=== PATIENT | male | born 1960 | race Caucasian/White ===

== ENCOUNTER 2019-05-12 04:59 | Emergency (ER) | payer OTHER ==
--- NOTE | 2019-05-12 05:04 | ER Report ---
History and Physical Time Seen By MD: 04:56 HPI/ROS CHIEF COMPLAINT: Right shoulder pain HISTORY OF PRESENT ILLNESS: 58-year-old male presents ambulatory to the ER complaining severe right shoulder pain. He appears grossly intoxicated state he fell down. His arm appears to be dislocated shifted anterior and inferior. Arm is slightly angulated out. Patient states his right hand is normal feeling. REVIEW OF SYSTEMS: Respiratory: No cough, no dyspnea. Cardiovascular: No chest pain, no palpitations. Gastrointestinal: No vomiting, no abdominal pain. Musculoskeletal: As above Allergies: Coded Allergies: No Known Drug Allergies (Unverified , 05/12/19) Home Meds Active Scripts Hydrocodone Bit/Acetaminophen (HYDROCODON-ACETAMINOPHEN 5-325) 1 Each Tablet, 1 EACH PO Q4-6H PRN for PAIN, #15 TAKE ONE TABLET BY MOUTH EVERY 4-6 HOURS NEEDED FOR PAIN Prov:DAHIANA LA DO 05/12/19 Reported Medications Amlodipine Besylate (AMLODIPINE BESYLATE) 5 Mg Tablet, 1 TAB PO QDAY, TAB 05/12/19 Atenolol (ATENOLOL) 50 Mg Tablet, 1 TAB PO QDAY, TAB 05/12/19 Reviewed Nurses Notes: Yes Old Medical Records Reviewed: Yes Constitutional Vital Sign - Last 24 Hours 05/12/19 05/12/19 05/12/19 05/12/19 04:59 05:00 05:00 05:04 Temp 97.7 Pulse ??? 81 90 Resp 17 B/P (MAP) 161/101 (121) 161/101 Pulse Ox 98 90 O2 Delivery Room Air 05/12/19 05/12/19 05/12/19 05/12/19 05:09 05:14 05:15 05:19 Pulse ??? 89 113 Resp 15 31 B/P (MAP) 152/85 (107) 180/112 (134) Pulse Ox 94 99 05/12/19 05/12/19 05/12/19 05/12/19 05:24 05:25 05:29 05:30 Pulse 100 95 B/P (MAP) 169/101 (123) 152/98 (116) Pulse Ox 95 97 05/12/19 05/12/19 05/12/19 05/12/19 05:34 05:39 05:44 05:45 Pulse 92 88 88 B/P (MAP) 152/84 (106) Pulse Ox 89 87 85 05/12/19 05/12/19 05/12/19 05:49 05:54 06:00 Pulse 92 89 B/P (MAP) 161/97 (118) Pulse Ox 86 92 Intake and Output 05/11/19 05/11/19 05/12/19 15:04 23:04 07:04 Intake Total 1000 ml Balance 1000 ml Physical Exam General Appearance: The patient is alert, has no immediate need for airway protection and no current signs of toxicity. Vital signs stable, afebrile Eyes: Pupils equal and round no injection. Respiratory: Chest is non tender, lungs are clear to auscultation. Cardiac: regular rate and rhythm Gastrointestinal: Abdomen is soft and non tender, no masses, bowel sounds normal. Musculoskeletal: Neck: Neck is supple and non tender. Extremities have full range of motion and are non tender. Examination of the r ight shoulder appears to be anteriorly and inferiorly dislocated., The right upper extremity is neurovascularly intact. Wrist and elbow are unremarkable. Skin: No rashes or lesions. DIFFERENTIAL DIAGNOSIS: After history and physical exam differential diagnosis was considered for sprain, strain, fracture, dislocation, contusion, alcohol intoxication Medical Decision Making ED Course/Re-evaluation Clinical Indication for ER IV: IV Access ED Course Patient was admitted to an examination room. An H&P was done. The differential diagnoses was considered. On clinical examination. Patient has a dislocated shoulder with fracture. Patient is given informed consent for conscious sedation. Patient's neurovascular function was noted to be intact post procedure. He was placed in a shoulder immobilizer. Procedure: Procedural sedation. A pre-sedation evaluation was completed on the patient at 0 516. Patient is an appropriate candidate for procedural sedation. The risks of the sedation were discussed with the and his significant other. 0 521 The patient was reevaluated immediately prior to initiation of sedation. The patient was sedated with etomidate 20 mg IV. The patient was monitored with continuous pulse oximetry and manager monitoring. There were no complications and no significant hypoxemia. I remained at the bedside for the sedation. The total time I spent in the procedural sedation was 20 minutes. Post sedation evaluation: Patient was oswald rt and cooperative, hemodynamically stable with appropriate respiratory status, temperature and pain control without ongoing nausea and vomiting. Procedure: Dislocation reduction. The shoulder was reduced in the usual fashion without complications. Post reduction the patient's neurovascular exam is normal. Post reduction x-ray demonstrates reduction of the joint to the anatomic position. The procedure was performed by myself. Decision to Disposition Date: May 12, 2019 Decision to Disposition Time: 05:03 Depart Departure Latest Vital Signs Vital Signs Date Time Temp Pulse Resp B/P (MAP) Pulse Ox O2 Delivery O2 Flow Rate FiO2 05/12/19 06:00 161/97 (118) 05/12/19 05:54 89 92 05/12/19 05:19 31 05/12/19 05:00 97.7 Room Air Impression: Primary Impression: Dislocation of right shoulder joint Additional Impression: Alcohol intoxication Condition: Improved Disposition: HOME OR SELF-CARE New Scripts Hydrocodone Bit/Acetaminophen (HYDROCODON-ACETAMINOPHEN 5-325) 1 Each Tablet 1 EACH PO Q4-6H PRN for PAIN, #15 TAKE ONE TABLET BY MOUTH EVERY 4-6 HOURS NEEDED FOR PAIN Prov: DAHIANA LA DO 05/12/19 Patient Instructions: Proximal Humerus Fracture (ED), Shoulder Dislocation (ED) Additional Instructions: Follow-up with orthopedics in your area within one week Problem Qualifiers Primary Impression: Dislocation of right shoulder joint Encounter type: initial encounter Qualified Codes: S43.004A - Unspecified dislocation of right shoulder joint, initial encounter Additional Impression: Alcohol intoxication Complication of substance-induced condition: uncomplicated Qualified Codes: F10.920 - Alcohol use, unspecified with intoxication, uncomplicated DAHIANA LA DO May 12, 2019 05:04
[2019-05-12] MEDS ORDERED: NS(*) 0.9% 1000 ML BAG 1,000 ML IV ONE (05:15)
[2019-05-12] MEDS ORDERED: ETOMIDATE 20 MG/10 ML VIAL IVP ONE (05:15)
--- NOTE | 2019-05-12 05:28 | RADIOLOGY IMAGING REPORT ---
FAC[place] [facility] [place]IENT NAME: Barry Leon : 1960 MR: [id number] V: [id number] EXAM DATE: ORDERING PHYSICIAN: DAHIANA LA TECHNOLOGIST: Location: [facility] - [place] Patient: Barry Leon : 1960 Visit/Account:[id number] Date of Sevice: 05/12/2019 RIGHT SHOULDER: Indication: Suspected dislocation. Technique: A single AP image was submitted. Comparison: None available. Findings: There is anterior subcoracoid dislocation of the humeral head. Furthermore, there is eviden ce of a displaced fracture arising from the lateral margin of the humeral head. The scapula appears i ntact, as visualized. The acromioclavicular joint is unremarkable. The visualized skeletal structures are otherwise unremarkable. There is normal mineralization. IMPRESSION: Anterior dislocation of the humerus, with an acute fracture arising from the lateral aspe ct of the humeral head. Report Dictated By: Richard Crowley MD at 05/12/2019 5:17 AM Report E-Signed By: Richard Crowley MD at 05/12/2019 5:20 AM WSN:[id number]
[2019-05-12] MEDS ORDERED: LOR5/325 PO (05:32)
[2019-05-12] MEDS ORDERED: KETOROLAC 30 MG/ML VIAL IVP ONE (05:35)
[2019-05-12] MEDS ORDERED: ACET/HYDROC 5/325MG TH ER ONLY 2 TAB/BOTTLE PO ONE (05:35)
[2019-05-12] MEDS ORDERED: ATEN-1 PO (05:40)
[2019-05-12] MEDS ORDERED: AMLO-125 PO (05:40)
--- NOTE | 2019-05-12 05:50 | RADIOLOGY IMAGING REPORT ---
FACILITY: [facility] - [place] PATIENT NAME: Barry Leon : 1960 MR: [id number] V: [id number] EXAM DATE: ORDERING PHYSICIAN: DAHIANA LA TECHNOLOGIST: Location: [facility] - [place] Patient: Barry Leon : 1960 Visit/Account:[id number] Date of Sevice: 05/12/2019 SHOULDER MIN 2 VIEWS RIGHT HISTORY: Dislocation. Post reduction. COMPARISON: Same date at 0459 hours. TECHNIQUE: AP and scapular Y views of the right shoulder. FINDINGS: Interval reduction of the anterior dislocation. There is a fracture of the posterolateral h umeral head. No acromioclavicular joint separation. The visible thorax is normal. There are a partial ly visualized plate and screws from anterior cervical fusion. IMPRESSION: 1. Reduction of the glenohumeral dislocation. 2. Fracture of the posterolateral humeral head. Report Dictated By: Teressa Chapin at 05/12/2019 5:39 AM Report E-Signed By: Teressa Chapin at 05/12/2019 5:42 AM WSN:[id number]
[2019-05-12 06:00] VITALS: BP 161/97
== END 2019-05-12 06:17 | disposition home or self-care (01) ==
LOC: ER 05:07
DX: S43.004A Unspecified dislocation of right shoulder joint, initial encounter (principal); F10.920 Alcohol use, unspecified with intoxication, uncomplicated
CPT/HCPCS: 23650; 73020; 73030; 96361; 96374; 96375; 99152; 99285; J1885; J3490; J7030; L3982